=== PATIENT | male | born 1950 | race Two or more races ===

== ENCOUNTER 2017-09-10 13:31 | Emergency (ER) | payer MEDICARE, MEDICAID ==
[~2017-09-10] VITALS: Ht 167.6 cm; Wt 64.0 kg
[2017-09-10 13:52] VITALS: BP 134/82
== END 2017-09-10 15:50 | disposition home or self-care (01) ==
LOC: ER 13:31
DX: S80.12XA Contusion of left lower leg, initial encounter (principal); E78.5 Hyperlipidemia, unspecified; E07.9 Disorder of thyroid, unspecified; W22.8XXA Striking against or struck by other objects, initial encounter; Y93.89 Activity, other specified; Y92.89 Other specified places as the place of occurrence of the external cause; Y99.8 Other external cause status
CPT/HCPCS: 73590; 93971

== ENCOUNTER 2017-09-13 12:22 | Emergency (ER) | payer MEDICARE, MEDICAID ==
[~2017-09-13] VITALS: Ht 170.2 cm; Wt 64.0 kg
[2017-09-13 14:28] LABS: Basophils # (auto) 0 uL; Basophils % (auto) 0.3 % (0.0-2.0); Eosinophils # (auto) 0.1 uL; Eosinophils % (auto) 0.8 % (0.0-7.0); Hematocrit 45.3 % (41.0-53.0); Hemoglobin 15.2 g/dL (13.5-17.5); Lymphocytes # (auto) 1.7 uL; Lymphocytes % (auto) 20.8 % (10.0-50.0); Mean Corpuscular Hemoglobin 30.7 pg (28.0-32.0); Mean Corpuscular Hgb Conc. 33.6 g/dL (32.0-36.0); Mean Corpuscular Volume 91.3 fL (80.0-100.0); Monocytes # (auto) 0.7 uL; Monocytes % (auto) 9.1 % (0.0-12.0); Neutrophils # (auto) 5.6 uL; Nucleated Red Blood Cells % 0.1 %; Platelet Count (auto) 155 10^3/uL (140-450); Red Blood Cells 4.96 10^6/uL (4.5-5.90); Red Cell Distribution Width 13.9 % (11.8-14.3); White Blood Cell 8.2 10^3/uL (4.4-10.8)
[2017-09-13 15:28] VITALS: BP 151/72
== END 2017-09-13 15:33 | disposition home or self-care (01) ==
LOC: ER 12:22
DX: L03.116 Cellulitis of left lower limb (principal); E78.5 Hyperlipidemia, unspecified; E07.89 Other specified disorders of thyroid; Z88.2 Allergy status to sulfonamides
CPT/HCPCS: 36415; 73610; 85025

== ENCOUNTER 2022-02-24 00:36 | Emergency (ER) | payer OTHER, MEDICAID ==
[~2022-02-24] VITALS: Ht 170.2 cm; Wt 66.4 kg
[2022-02-24 01:31] VITALS: BP 135/64
[2022-02-24] MEDS ORDERED: DOXY-332 PO (01:56)
[2022-02-24] MEDS ORDERED: PRED20TA2 PO (01:56)
[2022-02-24] MEDS ORDERED: ACET-1158 PO (01:56)
== END 2022-02-24 06:06 | disposition home or self-care (01) ==
LOC: ER 00:39
DX: U07.1 COVID-19 (principal); J06.9 Acute upper respiratory infection, unspecified
CPT/HCPCS: 36415; 71045; 87426